=== PATIENT | female | born 1965 | race Caucasian/White ===

== ENCOUNTER 2016-07-16 16:59 | Observation (INO) | payer OTHER ==
[~2016-07-16] VITALS: Ht 165.1 cm; Wt 109.5 kg
[~2016-07-16 16:59] MED LIST: ACIDOPHILUS1 EACH; ALAVERT10 M1 PO; ALBUTEROL 108 MCG; ALLEGRA180 MG PO; BUSPAR10 MG PO; CLEOCIN300 MG PO; CYMBALTA60 MG PO; Claritin,Alavart PO; Cleocin PO; DURAGESIC25 MCG TD; EPIPEN SC; FLONASE NS; FLONASE16 G1 BOTH NARES; FLOVENT 22120 INHALA IH; GABAPENTIN100 MG PO; HYDROCODON-ACE1 EAC7 PO; IBUPROFEN600 MG; IBUPROFEN800 MG PO; IMITREX100 MG PO; KEFLEX500 MG PO; LIPITOR80 MG PO; LISINOPRIL10 MG PO; LORATADINE10 M2 PO; LORTAB 5-325 M1 EACH PO; LYRICA100 MG PO; MACROBID100 MG PO; METAMUCIL CAPSU1 CAP PO; MOTRIN800 MG PO; MULTIPLE VITAM1 EACH PO; MVI; NIZORAL SHAMPO120 ML TP; NORCO 5/3251 TABLET PO; OXYBUTYNIN CHLOR5 MG PO; PERCOCET 5/31 TABLET PO; PRAVASTATIN SOD80 MG PO; PREMARIN VAGI42.5 GM VG; PROTONIX40 M1 PO; PROTONIX40 MG PO; PROVENTIL,2.5 MG/3 M IH; PYRIDIUM100 MG PO; PYRIDIUM200 MG PO; Percocet 5/325,Endoc PO; Percocet 7.5/325,End PO; Pravachol PO; Proventil,Ventolin H IH; REFRESH TEARS15 ML BOTH EYES; SEROQUEL50 MG PO; THERAGRAN1 TABLET PO; TOPAMAX50 MG PO; TRICOR145 MG PO; TYLENOL REGULA325 MG PO; Tricor PO; ULTRAM50 MG PO; VENTOLIN HFA18 GM IH; VIT C; Vicodin,Lortab 5/500 PO; Vicodin,Norco 5/325 PO; ZANAFLEX4 M1 PO; ZANTAC150 MG PO; ZOCOR80 MG PO; [UNRECOGNIZED DRUG - OTHER]
[2016-07-16 17:36] LABS: HEMATOCRIT 36.8 % (36.0-46.0); MCH 28.1 PG (29.0-34.0); MCHC 31.8 G/DL (30.0-36.0); MCV 88.2 FL (83-99); MEAN PLAT.VOLUME 10.5 uM^3 (9.5-12.4); PLATELET COUNT 409 K/uL (156-360); RBC DIS.WIDTH-CV 13.7 % (11.8-14.6); RBC DIS.WIDTH-SD 44.2 % (39-53); RED BLOOD COUNT 4.17 M/uL (3.80-5.20); WHITE BLOOD COUNT 23.3 K/uL (4.1-10.2)
[2016-07-16 17:57] LABS: CHLORIDE 108 mEq/L (99-109); POTASSIUM 4.7 mEq/L (3.7-5.4); SODIUM 137 mEq/L (136-147)
[2016-07-16 17:59] LABS: GLUCOSE 110 mg/dL (70-99)
[2016-07-16 18:00] LABS: ANION GAP 9 MEQ/L (2-14)
[2016-07-16 18:03] LABS: GFR ESTIMATE (CALCULATED) > 59 mL/min/; TROP-I INTERPRETATION NEGATIVE; TROPONIN-I < 0.01 ng/mL (0.0-0.30); UREA NITROGEN (BUN) 15 mg/dL (9-23)
[2016-07-16] MEDS ORDERED: CLARITIN,ALAVAR10 MG PO (20:51)
[2016-07-16] MEDS ORDERED: ZANAFLEX4 MG PO (20:52)
[2016-07-16] MEDS ORDERED: TOPAMAX25 MG PO (20:53)
[2016-07-16] MEDS ORDERED: EPIPEN ADU0.3 MG/0.3 IM (20:54)
[2016-07-16] MEDS ORDERED: WELLBUTRIN XL150 MG PO (20:54)
[2016-07-16] MEDS ORDERED: RESTASIS 01 DROP/0.4 BOTH EYES (20:54)
[2016-07-16] MEDS ORDERED: FLOVENT 22120 INHALA IH (20:54)
[2016-07-16 22:34] VITALS: BP 112/58
[2016-07-17 00:01] LABS: ADD MIUA? NO; BILIRUBIN NEGATIVE; BLOOD NEGATIVE; COLOR STRAW ((YELLOW)); GLUCOSE (STRIP) NEGATIVE; KETONES NEGATIVE; LEUKOCYTES NEGATIVE; NITRITE NEGATIVE; PROTEIN (STRIP) NEGATIVE; SPECIFIC GRAVITY 1.009 (1.000-1.030); UCUL ADDED? NO; UROBILINOGEN 0.2 MG/DL (0.2-1.0)
[2016-07-17 00:26] LABS: INFLUENZA A VIRAL ANTIGEN NEGATIVE; INFLUENZA B VIRAL ANTIGEN NEGATIVE
[2016-07-17 03:46] VITALS: BP 106/58
[2016-07-17 07:38] VITALS: BP 105/86
[2016-07-17 11:40] VITALS: BP 113/59
[2016-07-17 12:40] LABS: EOSINOPHIL (%) 0.1 % (0-5); HEMATOCRIT 31.3 % (36.0-46.0); IMMATURE GRANULOCYTE (%) 0.6 % (0.0-0.7); IMMATURE GRANULOCYTE COUNT 0.1 K/uL; INSTRUMENT ABS NEUTROPHIL CT 14.7 K/uL; LYMPHOCYTE COUNT 2.4 K/uL (1.0-2.8); MCH 27.7 PG (29.0-34.0); MCHC 30.7 G/DL (30.0-36.0); MCV 90.2 FL (83-99); MEAN PLAT.VOLUME 10.9 uM^3 (9.5-12.4); MONOCYTE (%) 7.4 % (3-12); MONOCYTE COUNT 1.4 K/uL (0-0.8); NEUTROPHIL COUNT 14.7 K/uL (1.8-6.4); PLATELET COUNT 371 K/uL (156-360); RBC DIS.WIDTH-CV 14.3 % (11.8-14.6); RBC DIS.WIDTH-SD 47.1 % (39-53); RED BLOOD COUNT 3.47 M/uL (3.80-5.20); WHITE BLOOD COUNT 18.6 K/uL (4.1-10.2)
[2016-07-17] MEDS ORDERED: LEVAQUIN750 MG PO (13:49)
[2016-07-17] MEDS ORDERED: ROBITUSSIN DM118 ML PO (13:50)
== END 2016-07-17 14:42 | disposition home or self-care (01) ==
LOC: EME 16:59 → EDOF 21:10 → 5WEST 21:10 → EDOF 21:51 → 5WEST 22:15
PROVIDERS: Emergency Medicine; Hospitalist; Physician Assistant
DX: J45.901 Unspecified asthma with (acute) exacerbation (principal); E11.9 Type 2 diabetes mellitus without complications; D72.829 Elevated white blood cell count, unspecified; R00.0 Tachycardia, unspecified; E80.1 Porphyria cutanea tarda; K21.9 Gastro-esophageal reflux disease without esophagitis; G89.29 Other chronic pain; M54.2 Cervicalgia; E66.01 Morbid (severe) obesity due to excess calories; Z68.41 Body mass index [BMI] 40.0-44.9, adult
CPT/HCPCS: 71010; 80048; 81003; 83605; 84484; 85025; 85027; 87040; 87070; 87205; 87502; 93005; 94640; 94640 76; 99202; 99281; 99285; G0378; J1650; J1885; J1956; J2060; J2930; J7030

== ENCOUNTER 2016-11-22 13:55 | Emergency (ER) | payer OTHER ==
[~2016-11-22] VITALS: Ht 165.1 cm; Wt 106.8 kg
[~2016-11-22 13:55] MED LIST changes: +CLARITIN,ALAVAR10 MG PO; +EPIPEN ADU0.3 MG/0.3 IM; +LEVAQUIN750 MG PO; +RESTASIS 01 DROP/0.4 BOTH EYES; +ROBITUSSIN DM118 ML PO; +TOPAMAX25 MG PO; +WELLBUTRIN XL150 MG PO; +ZANAFLEX4 MG PO
[2016-11-22] MEDS ORDERED: AZITHROMYCIN250 MG1 PO (17:06)
[2016-11-22 17:52] VITALS: BP 101/73
== END 2016-11-22 17:53 | disposition home or self-care (01) ==
LOC: EME 13:55
DX: J44.1 Chronic obstructive pulmonary disease with (acute) exacerbation (principal); K21.9 Gastro-esophageal reflux disease without esophagitis; Z87.891 Personal history of nicotine dependence; F32.9 Major depressive disorder, single episode, unspecified; Z88.2 Allergy status to sulfonamides; Z88.0 Allergy status to penicillin; Z88.1 Allergy status to other antibiotic agents; Z90.49 Acquired absence of other specified parts of digestive tract
CPT/HCPCS: 71020; 93005; 94640; 99281; 99284

== ENCOUNTER 2017-03-26 17:48 | Emergency (ER) | payer OTHER ==
[~2017-03-26] VITALS: Ht 165.1 cm; Wt 103.4 kg
[~2017-03-26 17:48] MED LIST changes: +AZITHROMYCIN250 MG1 PO
[2017-03-26 18:24] LABS: HEMATOCRIT 38.9 % (36.0-46.0); MCH 28.4 PG (29.0-34.0); MCHC 31.9 G/DL (30.0-36.0); MEAN PLAT.VOLUME 10.6 uM^3 (9.5-12.4); PLATELET COUNT 384 K/uL (156-360); RBC DIS.WIDTH-CV 14.4 % (11.8-14.6); RBC DIS.WIDTH-SD 47.3 % (39-53); RED BLOOD COUNT 4.37 M/uL (3.80-5.20); WHITE BLOOD COUNT 8.8 K/uL (4.1-10.2)
[2017-03-26 18:41] LABS: ADD MIUA? YES; BILIRUBIN NEGATIVE; BLOOD NEGATIVE; COLOR YELLOW ((YELLOW)); GLUCOSE (STRIP) NEGATIVE; KETONES NEGATIVE; LEUKOCYTES MODERATE; NITRITE NEGATIVE; PROTEIN (STRIP) NEGATIVE; SPECIFIC GRAVITY 1.016 (1.000-1.030); UROBILINOGEN 0.2 MG/DL (0.2-1.0)
[2017-03-26 18:45] LABS: BACTERIA NONE SEEN /HPF; EPITHELIAL CELLS RARE /HPF; HYALINE CASTS 0-5 /LPF; MUCUS TRACE /LPF; RED BLOOD CELLS 0-5 /HPF (0-5); UCUL ADDED? YES
[2017-03-26 18:47] LABS: CHLORIDE 109 mEq/L (99-109); POTASSIUM 4.4 mEq/L (3.7-5.4); SODIUM 140 mEq/L (136-147)
[2017-03-26 18:49] LABS: GLUCOSE 94 mg/dL (70-99)
[2017-03-26 18:51] LABS: ANION GAP 10 MEQ/L (2-14); TOTAL BILIRUBIN 0.3 mg/dL (0.0-1.0)
[2017-03-26 18:53] LABS: ALKALINE PHOSPHATASE 37 IU/L (3-129); GFR ESTIMATE (CALCULATED) > 59 mL/min/
[2017-03-26 18:54] LABS: UREA NITROGEN (BUN) 23 mg/dL (9-23)
[2017-03-26 18:57] LABS: LIPASE 74 U/L (1.0-51.0)
[2017-03-26 19:02] LABS: QUANTITATIVE HCG < 4.0 MIU/ML
[2017-03-26] MEDS ORDERED: MACROBID100 MG PO (21:25)
[2017-03-26 21:32] VITALS: BP 115/65
== END 2017-03-26 21:36 | disposition home or self-care (01) ==
LOC: EME 17:48 → RME 17:48
DX: N39.0 Urinary tract infection, site not specified (principal); K76.0 Fatty (change of) liver, not elsewhere classified; K57.30 Diverticulosis of large intestine without perforation or abscess without bleeding; J45.909 Unspecified asthma, uncomplicated; E78.5 Hyperlipidemia, unspecified; Z90.710 Acquired absence of both cervix and uterus; Z90.49 Acquired absence of other specified parts of digestive tract; Z87.891 Personal history of nicotine dependence
CPT/HCPCS: 74176; 80053; 81003; 83690; 84702; 85027; 87086; 99281; 99284

== ENCOUNTER 2017-03-30 15:17 | Emergency (ER) | payer OTHER ==
[~2017-03-30] VITALS: Ht 165.1 cm; Wt 102.6 kg
[2017-03-30] MEDS ORDERED: VENTOLIN HFA18 GM IH (18:35)
[2017-03-30] MEDS ORDERED: ZITHROMAX250 MG PO (18:35)
[2017-03-30 18:55] VITALS: BP 145/94
== END 2017-03-30 18:55 | disposition home or self-care (01) ==
LOC: EME 15:17
DX: J32.9 Chronic sinusitis, unspecified (principal); J40 Bronchitis, not specified as acute or chronic; R11.0 Nausea; H92.03 Otalgia, bilateral
CPT/HCPCS: 71020; 94640; 99281; 99284